=== PATIENT | female | born 1940 | race Caucasian/White ===

== ENCOUNTER 2019-10-31 10:48 | Emergency (ER) | payer OTHER ==
[~2019-10-31] VITALS: Ht 152.4 cm; Wt 73.5 kg
[~2019-10-31 10:48] MED LIST: ACET-3627 PO; AMLO5TAB1 PO; CARV12.5 PO; CLOP75TA PO; FENO160T9 PO; [UNRECOGNIZED DRUG - CODE] PO
[2019-10-31 10:57] VITALS: BP 130/78
--- NOTE | 2019-10-31 11:09 | NUR ---
PATIENT W/C ASSISTED TO BED 9.
[2019-10-31 12:02] LABS: BASOPHILS # (AUTO) 0.1 K/uL (0.00-0.22); BASOPHILS % (AUTO) 0.9 % (0.0-2.0); EOSINOPHILS # (AUTO) 0.1 K/uL (0-0.4); EOSINOPHILS % (AUTO) 0.8 % (0.0-4.0); HEMATOCRIT 40.4 % (36-48); HEMOGLOBIN 13.4 g/dL (12.0-16.0); LYMPHOCYTES # (AUTO) 1.3 K/uL (2.5-16.5); LYMPHOCYTES % (AUTO) 17.7 % (20.5-51.1); MEAN CORPUSCULAR HEMOGLOBIN 29 pg (27-31); MEAN CORPUSCULAR HGB CONC 33 g/dL (33-37); MEAN CORPUSCULAR VOLUME 87.7 fL (80-94); MONOCYTES # (AUTO) 0.7 K/uL (0.8-1.0); MONOCYTES % (AUTO) 10.1 % (1.7-9.3); NEUTROPHILS % (AUTO) 70.5 % (42.2-75.2); PLATELET COUNT (AUTO) 96 K/uL (140-450); RED BLOOD CELL COUNT(AUTO) 4.61 MIL/uL (4.20-5.40); RED CELL DISTRIBUTION WIDTH 14.2 % (11.6-13.7); WHITE BLOOD COUNT (AUTO) 7.1 K/uL (4.8-10.8)
--- NOTE | 2019-10-31 12:03 | NUR ---
79 Y/O F C/C COUGH/HEACHACE/BODYACHES X 1 WEEK. PT TAKEN RX WITH NO RELIEF. PT UP TO DATE WITH VACCINATIONS/NO FAMILY SICK AT HOME. ALLERGIES ASA. HX HTN,HDL. RX MULTIPLE, WITH PT AT BEDSIDE. PT NAUSEUS. NO V/D. SIDE RAIL X1. BILATERAL LOWER LUNG SOUNDS CRACKLES.
[2019-10-31] MEDS: NACL 0.9% 500 ML IV SCH (12:10)
[2019-10-31 12:11] LABS: APPEARANCE,URINE CLEAR (CLEAR); BILIRUBIN,URINE NEGATIVE (NEGATIVE); BLOOD, URINE TRACE-I (NEGATIVE); COLOR,URINE YELLOW (YELLOW); LEUKOCYTE ESTERASE ,URINE NEGATIVE (NEGATIVE); NITRITE, URINE NEGATIVE (NEGATIVE); UGLUCOSE NEGATIVE (NEGATIVE)
[2019-10-31] MEDS: traMADol 50 MG TAB PO ONE (12:11)
[2019-10-31 12:23] LABS: RBC,URINE 0-5 /HPF (0-5); WBC,URINE 0-5 /HPF (0-5)
[2019-10-31 12:25] LABS: PROTHROMBIN TIME 9.6 secs (10.8-13.4)
[2019-10-31 12:29] LABS: ALBUMIN 4.2 g/dL (3.4-5.0); ANION GAP 14.4 (8-16); ASPARTATE AMINOTRANSFERASE 20 U/L (15-37); CARBON DIOXIDE 27.1 mmol/L (21-32); CHLORIDE 103 mmol/L (98-107); CREATININE 0.8 mg/dL (0.6-1.3); GLUCOSE 103 mg/dL (74-106); POTASSIUM 3.5 mmol/L (3.5-5.1); SODIUM SERUM 141 mmol/L (136-145); TOTAL BILIRUBIN 0.6 mg/dL (0.0-1.0); UREA NITROGEN, BLOOD 9 mg/dL (7-18)
[2019-10-31 12:38] LABS: FREE T4 (FREE THYROXINE) 0.81 ng/dL (0.76-1.46); THYROID STIMULATING HORMONE 6.91 uIU/mL (0.34-3.74)
--- NOTE | 2019-10-31 13:18 | NUR ---
PT AMB TO RESTROOM WITH STEADY GAIT
--- NOTE | 2019-10-31 13:41 | NUR ---
dr blood re evaluating pt
[2019-10-31 14:04] VITALS: BP 148/75
--- NOTE | 2019-10-31 14:04 | NUR ---
Patient discharged with v/s stable. Written and verbal after care instructions given and explained. Patient alert, oriented and verbalized understanding of instructions. Ambulatory with steady gait. All questions addressed prior to discharge. ID band removed. Patient advised to follow up with PMD. Rx of PROMETHAZINE,TRAMADOL given. Patient educated on indication of medication including possible reaction and side effects. Opportunity to ask questions provided and answered.
== END 2019-10-31 14:04 | disposition home or self-care (01) ==
LOC: MED 10:48
DX: J06.9 Acute upper respiratory infection, unspecified (principal); R42 Dizziness and giddiness; R10.9 Unspecified abdominal pain; J44.9 Chronic obstructive pulmonary disease, unspecified; I10 Essential (primary) hypertension; E07.9 Disorder of thyroid, unspecified; F03.90 Unspecified dementia, unspecified severity, without behavioral disturbance, psychotic disturbance, mood disturbance, and anxiety; E78.00 Pure hypercholesterolemia, unspecified; F41.9 Anxiety disorder, unspecified; Z88.6 Allergy status to analgesic agent; Z79.899 Other long term (current) drug therapy
CPT/HCPCS: 36415; 71045; 80053; 81001; 83605; 83880; 84439; 84443; 84484; 85025; 85610; 85730; 87040; 87804; 93005; 96360; 99284; J7030; Q0092